=== PATIENT | male | born 1970 | race Caucasian/White ===

== ENCOUNTER 2016-08-07 22:47 | Emergency (ER) | payer MEDICAID ==
[~2016-08-07] VITALS: Ht 188 cm; Wt 96.0 kg
[~2016-08-07 22:47] MED LIST: DOXY25TA18 PO; TRAM50TA2 PO
[2016-08-07 22:48] VITALS: BP 132/87
== END 2016-08-08 01:02 | disposition home or self-care (01) ==
LOC: ED 23:59
DX: K59.00 Constipation, unspecified (principal); R10.84 Generalized abdominal pain; K21.9 Gastro-esophageal reflux disease without esophagitis; K75.9 Inflammatory liver disease, unspecified; Z88.0 Allergy status to penicillin; Z88.8 Allergy status to other drugs, medicaments and biological substances
CPT/HCPCS: 74022; 99284

== ENCOUNTER 2016-09-15 22:39 | Emergency (ER) | payer MEDICAID ==
[~2016-09-15] VITALS: Ht 185.4 cm; Wt 92.1 kg
[2016-09-15] MEDS ORDERED: ONDANSETRON 2MG/ML, 2ML ONE (23:25)
[2016-09-15] MEDS ORDERED: FAMOTIDINE 20 MG/2 ML ONE (23:26)
[2016-09-15] MEDS ORDERED: MORPHINE SULFATE 4 MG/ML, 1ML ONE (23:28)
[2016-09-15] MEDS ORDERED: FAMOTIDINE 20 MG/2 ML IVP ONE (23:30)
[2016-09-15] MEDS ORDERED: SODIUM CHLORIDE FLUSH 10ML SYR IVF ONE (23:30)
[2016-09-15] MEDS ORDERED: SODIUM CHLORIDE 0.9% 1,000ML IVBOLUS ONE (23:30)
[2016-09-15] MEDS ORDERED: MORPHINE SULFATE 4 MG/ML, 1ML IVPush PRN (23:30)
[2016-09-15] MEDS ORDERED: ONDANSETRON 2MG/ML, 2ML IVPush ONE (23:30)
[2016-09-15 23:45] LABS: ASPARTATE AMINO TRANSFERASE 46 U/L (15-37); BLOOD UREA NITROGEN 10 mg/dL (7-18)
[2016-09-15] MEDS: MAALOX/HYOSCYAMINE/LIDOCAINE 45 ML BOTTLE PO ONE (23:53)
[2016-09-15] MEDS ORDERED: MAALOX/HYOSCYAMINE/LIDOCAINE 45 ML BOTTLE ONE (23:57)
[2016-09-16] MEDS: MAALOX/HYOSCYAMINE/LIDOCAINE 45 ML BOTTLE PO ONE
[2016-09-16 00:23] VITALS: BP 145/98
== END 2016-09-16 01:20 | disposition home or self-care (01) ==
LOC: ED 23:58
DX: K29.00 Acute gastritis without bleeding (principal); K21.9 Gastro-esophageal reflux disease without esophagitis; K75.9 Inflammatory liver disease, unspecified
CPT/HCPCS: 36415; 76700; 80053; 81001; 83690; 85025; 87086; 96361; 96374; 96375; 99285; J2405; J7030; S0028

== ENCOUNTER 2016-09-18 22:10 | Inpatient (IN) | payer MEDICAID ==
[~2016-09-18] VITALS: Ht 188 cm; Wt 95.5 kg
[2016-09-18] MEDS ORDERED: SODIUM CHLORIDE 0.9% 1,000 ML IV ONE (22:34)
[2016-09-18] MEDS ORDERED: ONDANSETRON 2MG/ML, 2ML ONE (22:54)
[2016-09-18] MEDS ORDERED: HYDROmorphone 1 MG/ML, 1ML ONE (22:54)
[2016-09-18] MEDS ORDERED: SODIUM CHLORIDE FLUSH 10ML SYR IVF ONE (23:00)
[2016-09-18] MEDS ORDERED: HYDROmorphone 1 MG/ML, 1ML IVPush PRN (23:00)
[2016-09-18] MEDS ORDERED: ONDANSETRON 2MG/ML, 2ML IVPush ONE (23:00)
[2016-09-18 23:04] LABS: ASPARTATE AMINO TRANSFERASE 43 U/L (15-37); BLOOD UREA NITROGEN 10 mg/dL (7-18)
[2016-09-18] MEDS ORDERED: OMNIPAQUE 350 MG/ML, 100ML BOTTLE ONE (23:43)
[2016-09-19] MEDS ORDERED: MAALOX/HYOSCYAMINE/LIDOCAINE 45 ML BOTTLE ONE (00:21)
[2016-09-19] MEDS ORDERED: SODIUM CHLORIDE 0.9% 1,000 ML IV ONE (00:25)
[2016-09-19] MEDS ORDERED: MAALOX/HYOSCYAMINE/LIDOCAINE 45 ML BOTTLE PO ONE (00:30)
[2016-09-19] MEDS ORDERED: ONDANSETRON 2MG/ML, 2ML IVPush PRN ×2 (00:30→01:00)
[2016-09-19] MEDS ORDERED: SODIUM CHLORIDE FLUSH 10ML SYR IVF PRN (00:30)
[2016-09-19] MEDS ORDERED: HYDROmorphone 1 MG/ML, 1ML IVPush PRN (00:30)
[2016-09-19] MEDS ORDERED: POLYETHYLENE GLYCOL 17 GM PACKET PO PRN (01:00)
[2016-09-19] MEDS ORDERED: BISACODYL 10 MG SUPP PR PRN (01:00)
[2016-09-19] MEDS ORDERED: ACETAMINOPHEN 325 MG TABLET PO PRN (01:00)
[2016-09-19] MEDS ORDERED: SUPPOSITORY PR (01:05)
[2016-09-19] MEDS ORDERED: RANI150T8 PO (01:05)
[2016-09-19] MEDS ORDERED: BISM262O20 PO (01:05)
[2016-09-19] MEDS ORDERED: MYLANTA PO (01:05)
[2016-09-19] MEDS ORDERED: ACET-1600 PO (01:05)
[2016-09-19 02:07] VITALS: BP 136/90
[2016-09-19] MEDS: NS + 20MEQ KCL 1,000 ML IV SCH ×2 (02:09→11:43)
[2016-09-19] MEDS: HYDROmorphone 2 MG/ML, 1ML IVPush PRN ×3 (02:18→11:40)
[2016-09-19] MEDS: HEPARIN 5,000 UNITS/ML, 1ML SQ SCH ×3 (02:18→18:13)
[2016-09-19 06:01] LABS: ASPARTATE AMINO TRANSFERASE 43 U/L (15-37); BLOOD UREA NITROGEN 9 mg/dL (7-18)
[2016-09-19 07:51] VITALS: BP 130/86
[2016-09-19] MEDS: SENNA/DOCUSATE TABLET PO SCH (09:33)
[2016-09-19] MEDS ORDERED: NALOXONE 0.4 MG/ML, 1ML ONE ×2 (13:24→13:28)
[2016-09-19] MEDS ORDERED: NALOXONE 0.4 MG/ML, 1ML IVPush ONE ×2 (13:25→13:30)
[2016-09-19 14:51] VITALS: BP 96/65
[2016-09-19 16:35] VITALS: BP 101/70
[2016-09-19 19:25] VITALS: BP 99/65
[2016-09-20 00:15] VITALS: BP 115/74
[2016-09-20] MEDS: HYDROcodone/APAP 5/325 TABLET PO PRN ×3 (00:23→10:05)
[2016-09-20] MEDS: NS + 20MEQ KCL 1,000 ML IV SCH ×2 (00:35→11:57)
[2016-09-20] MEDS: HEPARIN 5,000 UNITS/ML, 1ML SQ SCH ×4 (02:00→14:00)
[2016-09-20 06:39] VITALS: BP 113/76
[2016-09-20] MEDS: SENNA/DOCUSATE TABLET PO SCH ×2 (08:45→08:47)
[2016-09-20] MEDS ORDERED: LIDOCAINE 1%, 20ML ONE (08:47)
[2016-09-20] MEDS ORDERED: FLUMAZENIL 0.1 MG/1 ML, 5ML ONE (09:13)
[2016-09-20] MEDS ORDERED: FENTANYL PF 100 MCG/2ML ONE (09:13)
[2016-09-20] MEDS ORDERED: MIDAZOLAM 1 MG/ML, 5ML ONE (09:13)
[2016-09-20] MEDS ORDERED: NALOXONE 1 MG/ML, 2ML ONE (09:13)
[2016-09-20] MEDS: FENTANYL REMOVE PATCH NOTE XX SCH (13:30)
[2016-09-20 13:57] VITALS: BP 137/90
[2016-09-20] MEDS: HYDROmorphone 1 MG/ML, 1ML IV PRN ×2 (14:43→15:32)
[2016-09-20] MEDS: FENTANYL 12 MCG PATCH TD SCH (14:43)
[2016-09-20] MEDS: CLINDAMYCIN PMX 600MG/50ML 50 ML IV SCH ×2 (15:00→21:40)
[2016-09-20] MEDS: LACTOBACILLUS CHEW TABLET PO SCH ×2 (16:27→19:49)
[2016-09-20 18:59] VITALS: BP 143/95
[2016-09-21] MEDS: NS + 20MEQ KCL 1,000 ML IV SCH ×2 (01:53→14:21)
[2016-09-21] MEDS: CLINDAMYCIN PMX 600MG/50ML 50 ML IV SCH ×4 (03:19→20:32)
[2016-09-21 04:24] VITALS: BP 147/78
[2016-09-21 04:34] LABS: BLOOD UREA NITROGEN 7 mg/dL (7-18)
[2016-09-21 06:53] VITALS: BP 145/97
[2016-09-21] MEDS: SENNA/DOCUSATE TABLET PO SCH (07:27)
[2016-09-21] MEDS: LACTOBACILLUS CHEW TABLET PO SCH ×3 (07:27→20:31)
[2016-09-21] MEDS: POLYETHYLENE GLYCOL 17 GM PACKET PO SCH (09:00)
[2016-09-21 10:36] LABS: ASPARTATE AMINO TRANSFERASE 50 U/L (15-37); BLOOD UREA NITROGEN 7 mg/dL (7-18)
[2016-09-21] MEDS ORDERED: CETACAINE 50ML TP ONE (11:30)
[2016-09-21] MEDS: HEPARIN 5,000 UNITS/ML, 1ML SQ SCH ×2 (12:18→20:32)
[2016-09-21 12:35] VITALS: BP 147/97
[2016-09-21] MEDS ORDERED: LIDOCAINE GEL 2%, 5ML ONE (13:25)
[2016-09-21] MEDS ORDERED: BENZOCAINE 20% SPRAY 0.5ML ONE (13:25)
[2016-09-21 15:55] LABS: ABG COLLECTION SITE RIGHT BRACHIAL
[2016-09-21 18:38] VITALS: BP 146/94
[2016-09-21] MEDS: KETOROLAC 30 MG/1 ML IVPush PRN (22:52)
[2016-09-22] MEDS: NS + 20MEQ KCL 1,000 ML IV SCH ×3 (01:47→21:50)
[2016-09-22] MEDS: CLINDAMYCIN PMX 600MG/50ML 50 ML IV SCH ×4 (01:47→21:50)
[2016-09-22] MEDS: HEPARIN 5,000 UNITS/ML, 1ML SQ SCH ×3 (01:48→18:23)
[2016-09-22 01:54] VITALS: BP 137/86
[2016-09-22 04:11] LABS: ASPARTATE AMINO TRANSFERASE 41 U/L (15-37); BLOOD UREA NITROGEN 7 mg/dL (7-18)
[2016-09-22 07:29] VITALS: BP 136/88
[2016-09-22] MEDS ORDERED: POTASSIUM PHOSPHATE 44 MEQ in SODIUM CHLORIDE 0.9% 500 ML IV ONE (07:30)
[2016-09-22] MEDS: LACTOBACILLUS CHEW TABLET PO SCH ×3 (08:58→21:00)
[2016-09-22] MEDS: POLYETHYLENE GLYCOL 17 GM PACKET PO SCH (08:58)
[2016-09-22 12:07] LABS: HEPATITIS C PCR QUANTITATION HCV Not Detected IU/mL (.)
[2016-09-22 12:45] VITALS: BP 120/79
[2016-09-22 19:04] VITALS: BP 127/80
[2016-09-22] MEDS: KETOROLAC 30 MG/1 ML IVPush PRN (22:05)
[2016-09-23 01:18] VITALS: BP 128/84
[2016-09-23] MEDS: HEPARIN 5,000 UNITS/ML, 1ML SQ SCH ×2 (01:40→09:57)
[2016-09-23] MEDS: CLINDAMYCIN PMX 600MG/50ML 50 ML IV SCH ×4 (04:23→22:00)
[2016-09-23 06:21] VITALS: BP 133/87
[2016-09-23] MEDS: LACTOBACILLUS CHEW TABLET PO SCH ×3 (09:00→20:41)
[2016-09-23] MEDS: POLYETHYLENE GLYCOL 17 GM PACKET PO SCH (09:00)
[2016-09-23] MEDS: NS + 20MEQ KCL 1,000 ML IV SCH (09:56)
[2016-09-23] MEDS: KETOROLAC 30 MG/1 ML IVPush PRN ×2 (10:04→20:40)
[2016-09-23 12:41] VITALS: BP 129/85
[2016-09-23] MEDS: FENTANYL 12 MCG PATCH TD SCH (16:13)
[2016-09-23] MEDS: FENTANYL REMOVE PATCH NOTE XX SCH (16:13)
[2016-09-23 19:06] VITALS: BP 120/82
[2016-09-24 01:12] VITALS: BP 130/80
[2016-09-24] MEDS: KETOROLAC 30 MG/1 ML IVPush PRN ×4 (03:56→22:18)
[2016-09-24] MEDS: CLINDAMYCIN PMX 600MG/50ML 50 ML IV SCH ×4 (03:56→22:18)
[2016-09-24 06:36] VITALS: BP 142/92
[2016-09-24] MEDS ORDERED: MIDAZOLAM 1 MG/ML, 2ML ONE (07:17)
[2016-09-24] MEDS ORDERED: FENTANYL PF 100 MCG/2ML ONE (07:17)
[2016-09-24] MEDS ORDERED: DEXAMETHASONE 4 MG/ML, 1ML ONE (07:37)
[2016-09-24] MEDS ORDERED: PROPOFOL 10 MG/ML, 50ML ONE (07:37)
[2016-09-24] MEDS ORDERED: ONDANSETRON 2MG/ML, 2ML ONE (07:37)
[2016-09-24] MEDS: POLYETHYLENE GLYCOL 17 GM PACKET PO SCH (09:00)
[2016-09-24] MEDS ORDERED: METOCLOPRAMIDE 5 MG/ML, 2ML IV PRN (09:00)
[2016-09-24] MEDS ORDERED: FENTANYL PF 100 MCG/2ML IV PRN (09:00)
[2016-09-24] MEDS ORDERED: LABETALOL 5MG/ML, 20ML IV PRN (09:00)
[2016-09-24] MEDS ORDERED: EPHEDRINE 50 MG/ML, 1ML IVPush PRN (09:00)
[2016-09-24] MEDS ORDERED: ALBUTEROL/IPRATROPIUM 2.5MG/0.5MG, 3 ML NPPB PRN (09:00)
[2016-09-24] MEDS: LACTOBACILLUS CHEW TABLET PO SCH ×3 (09:00→21:00)
[2016-09-24] MEDS ORDERED: ONDANSETRON 2MG/ML, 2ML IVPush PRN (09:00)
[2016-09-24] MEDS ORDERED: ALBUTEROL SULFATE 2.5 MG/3 ML NPPB PRN (09:00)
[2016-09-24] MEDS: HEPARIN 5,000 UNITS/ML, 1ML SQ SCH ×2 (10:23→17:58)
[2016-09-24 12:23] VITALS: BP 134/87
[2016-09-24] MEDS: NS + 20MEQ KCL 1,000 ML IV SCH ×2 (12:33)
[2016-09-24 19:02] VITALS: BP 122/80
[2016-09-25 01:15] VITALS: BP 116/74
[2016-09-25] MEDS: NS + 20MEQ KCL 1,000 ML IV SCH ×2 (02:00→04:04)
[2016-09-25] MEDS: HEPARIN 5,000 UNITS/ML, 1ML SQ SCH ×3 (03:04→17:03)
[2016-09-25] MEDS: CLINDAMYCIN PMX 600MG/50ML 50 ML IV SCH ×4 (04:03→21:04)
[2016-09-25] MEDS: KETOROLAC 30 MG/1 ML IVPush PRN ×2 (05:00→18:59)
[2016-09-25 06:50] VITALS: BP 117/77
[2016-09-25] MEDS: POLYETHYLENE GLYCOL 17 GM PACKET PO SCH (08:24)
[2016-09-25] MEDS: LACTOBACILLUS CHEW TABLET PO SCH ×3 (08:24→21:00)
[2016-09-25 12:46] VITALS: BP 136/85
[2016-09-25 19:38] VITALS: BP 108/72
[2016-09-26] MEDS: KETOROLAC 30 MG/1 ML IVPush PRN ×3 (00:34→11:55)
[2016-09-26 01:56] VITALS: BP 108/68
[2016-09-26] MEDS: CLINDAMYCIN PMX 600MG/50ML 50 ML IV SCH ×2 (02:59→10:15)
[2016-09-26] MEDS: HEPARIN 5,000 UNITS/ML, 1ML SQ SCH ×2 (02:59→08:28)
[2016-09-26] MEDS: POLYETHYLENE GLYCOL 17 GM PACKET PO SCH (08:28)
[2016-09-26] MEDS: LACTOBACILLUS CHEW TABLET PO SCH (08:28)
[2016-09-26] MEDS ORDERED: FENT1PAT77 TD (10:46)
[2016-09-26] MEDS: FENTANYL 12 MCG PATCH TD SCH (11:56)
[2016-09-26] MEDS: FENTANYL REMOVE PATCH NOTE XX SCH (11:56)
== END 2016-09-26 13:00 | disposition home or self-care (01) | DRG 435 ==
LOC: ED 23:12 → EDIP 09-19 00:25 → 4NOR 09-19 00:49 → 3NW 09-19 15:51
PROVIDERS: ADMIT Internal Medicine; ATTEND Internal Medicine
PROC: 0DH63UZ Insertion of Feeding Device into Stomach, Percutaneous Approach (ICD-10-PCS; 2016-09-19)
PROC: 0FB13ZX Excision of Right Lobe Liver, Percutaneous Approach, Diagnostic (ICD-10-PCS; 2016-09-20)
PROC: 0DH63UZ Insertion of Feeding Device into Stomach, Percutaneous Approach (ICD-10-PCS; principal; 2016-09-24 07:30)
DX: C25.2 Malignant neoplasm of tail of pancreas (principal); E43 Unspecified severe protein-calorie malnutrition; J69.0 Pneumonitis due to inhalation of food and vomit; J96.01 Acute respiratory failure with hypoxia; C78.7 Secondary malignant neoplasm of liver and intrahepatic bile duct; G71.0 Muscular dystrophy; G89.29 Other chronic pain; B19.20 Unspecified viral hepatitis C without hepatic coma; K21.9 Gastro-esophageal reflux disease without esophagitis; R16.1 Splenomegaly, not elsewhere classified; J44.9 Chronic obstructive pulmonary disease, unspecified; G71.12 Myotonia congenita; R13.12 Dysphagia, oropharyngeal phase; E87.6 Hypokalemia; E83.42 Hypomagnesemia; E83.39 Other disorders of phosphorus metabolism; Z66 Do not resuscitate; Z51.5 Encounter for palliative care; Z96.641 Presence of right artificial hip joint; Z82.3 Family history of stroke; Z82.49 Family history of ischemic heart disease and other diseases of the circulatory system; Z90.89 Acquired absence of other organs; Z87.891 Personal history of nicotine dependence; Z79.899 Other long term (current) drug therapy; Z88.0 Allergy status to penicillin; Z88.8 Allergy status to other drugs, medicaments and biological substances
CPT/HCPCS: 36415; 36600; 47000; 70450; 71010; 74177; 74230; 76700; 76942; 80048; 80053; 81003; 82803; 82962; 83690; 83735; 84100; 84484; 85014; 85018; 85025; 85610; 86301; 87522; 88307; 88341; 88342; 93005; 94640; 96374; 96375; 99156; 99157; B4087; J1100; J1170; J1644; J1885; J2250; J2310; J2405; J2704; J3010; J3480; J3490; Q9967; G0461; J7030; J7040